=== PATIENT | male | born 1955 | race Caucasian/White ===

== ENCOUNTER 2020-05-01 11:44 | Outpatient (CLI) | payer OTHER, SELFPAY ==
--- NOTE | ~2020-05-01 | XR_ITS ---
XR thoracic spine 3V DATE: 05/01/2020 12:09 INDICATION: T12 area pain TECHNIQUE: AP, lateral, swimmer's views COMPARISON: None FINDINGS: No fracture or dislocation or bone destruction. The thoracic pedicles are intact. There is mild degenerative spurring. No paraspinal soft tissue thickening. IMPRESSION: Mild degenerative change Reviewed, dictated and finalized at location B. TAL SPECIALIST IMPRESSION: Mild degenerative change
== END 2020-05-01 11:45 | disposition home or self-care (01) ==
PROVIDERS: PCP Internal Medicine; Visit Provider Internal Medicine
DX: M19.90 Unspecified osteoarthritis, unspecified site (principal)
CPT/HCPCS: 72072

== ENCOUNTER 2020-08-21 11:32 | Outpatient (CLI) | payer OTHER, SELFPAY | END 2020-08-21 11:33 | disposition home or self-care (01) | LOC: ANHCOVIDVC 11:32 | PROVIDERS: PCP Internal Medicine; Visit Provider Internal Medicine | DX: Z23 Encounter for immunization (principal) | CPT/HCPCS: 0001A; 91300 ==

== ENCOUNTER 2020-09-11 11:35 | Outpatient (CLI) | payer OTHER, SELFPAY | END 2020-09-11 11:36 | disposition home or self-care (01) | LOC: ANHCOVIDVC 11:35 | PROVIDERS: PCP Internal Medicine; Visit Provider Internal Medicine | DX: Z23 Encounter for immunization (principal) | CPT/HCPCS: 0002A; 91300 ==

== ENCOUNTER 2021-01-16 15:46 | Emergency (ER) | payer OTHER, SELFPAY ==
--- NOTE | ~2021-01-16 | CT_ITS ---
[facility] DATE: 01/16/2021 17:02 INDICATION: Left chest and abdominal pain. Fall from height. TECHNIQUE: Computed tomography (CT) of the chest, abdomen, pelvis, thoracic spine, and lumbar spine w as performed with 100 mL Omnipaque 350 intravenous contrast. Automated exposure control and iterative reconstruction technique were employed. The dose-length product was 1147.37 mGy-cm. COMPARISON: Thoracic spine radiographs 05/01/2020 FINDINGS: CHEST CT: There is mild atelectasis in the inferior lungs. A calcified left lung nodule is consistent with old granulomatous disease. No pleural effusion. Cardiomegaly is noted. There are coronary artery calcific ations. No pericardial effusion. There is bilateral gynecomastia. The central pulmonary arteries are enlarged, consistent with pulmonary arterial hypertension. There are fractures of left 10th and 12th ribs. ABDOMEN/PELVIS CT: There is a 7 mm cyst in the liver. The gallbladder is normal. There is a 6 mm low-attenuation lesion in the spleen, likely benign. The pancreas, adrenal glands, and right kidney are normal. There is a 5 mm cyst in left kidney. The prostate is mildly enlarged. There are likely changes of left inguinal h ernia repair. There are no dilated loops of bowel. The appendix is not visualized. There are no patho logically enlarged lymph nodes. There is no free intraperitoneal fluid. THORACIC SPINE CT: There is 4 degrees dextrocurvature of thoracic spine. There is mild chronic anterior wedging of T7-T1 2 vertebral bodies. There is mildly decreased disc height from T4-T5 through T11-T12. There is multil evel facet joint osteoarthritis, severe at many levels. There is multilevel mild neural foraminal abdirashid nosis bilaterally. On the right, there is moderate neural foraminal stenosis at T8-T9. On the left, t here is moderate neural foraminal stenosis at T8-T9. No central canal stenosis. LUMBAR SPINE CT: There is 7 degrees levocurvature of lumbar spine. There is 3 mm retrolisthesis of L2 on L3. Vertebral body heights are normal. There is mildly decreased disc height at L1-L2 and L2-L3, moderately decrea sed disc height at L3-L4, and mildly decreased disc height at L4-L5. The following disc levels are sp ecifically discussed: L1-L2: The disc does not extend beyond the endplate margin. There is mild bilateral facet joint osteo arthritis. There is no neural foraminal stenosis. There is no central canal stenosis. L2-L3: The disc is bulging. There is moderate bilateral facet joint osteoarthritis. There is mild gerda ateral neural foraminal stenosis. There is mild central canal stenosis. L3-L4: The disc is bulging. There is mild right and moderate left facet joint osteoarthritis. There i s moderate bilateral neural foraminal stenosis. There is mild central canal stenosis. L4-L5: The disc is bulging. There is severe right and moderate left facet joint osteoarthritis. There is mild bilateral neural foraminal stenosis. There is mild central canal stenosis. L5-S1: The disc is bulging. There is severe bilateral facet joint osteoarthritis. There is mild bilat eral neural foraminal stenosis. There is mild central canal stenosis. IMPRESSION: 1. Acute fractures of left 10th and 12th ribs. 2. Moderate thoracic and lumbar spondylosis. Reviewed, dictated and finalized at location A.
--- NOTE | ~2021-01-16 | CT_ITS ---
EXAMINATION: CT cervical spine wo con DATE: 01/16/2021 17:01 INDICATION: Neck injury. TECHNIQUE: Computed tomography (CT) of the cervical spine was performed without intravenous contrast. Automated exposure control and iterative reconstruction technique were employed. The dose-length pro duct was 429.82 mGy-cm. COMPARISON: None FINDINGS: Bone alignment is normal. Vertebral body heights are normal. There is mildly decreased disc height at C5-C6. The following disc levels are specifically discussed: C2-C3: There is no uncovertebral joint osteoarthritis. There is no facet joint osteoarthritis. There is no neural foraminal stenosis. There is no central canal stenosis. C3-C4: There is mild right uncovertebral joint osteoarthritis. There is mild bilateral facet joint os teoarthritis. There is no neural foraminal stenosis. There is no central canal stenosis. C4-C5: There is mild right uncovertebral joint osteoarthritis. There is mild bilateral facet joint os teoarthritis. There is no neural foraminal stenosis. There is no central canal stenosis. C5-C6: There is moderate right and mild left uncovertebral joint osteoarthritis. There is mild bilate ral facet joint osteoarthritis. There is mild bilateral neural foraminal stenosis. There is mild cent ral canal stenosis. C6-C7: There is no uncovertebral joint osteoarthritis. There is mild bilateral facet joint osteoarthr itis. There is no neural foraminal stenosis. There is no central canal stenosis. C7-T1: There is no uncovertebral joint osteoarthritis. There is moderate right and severe left facet joint osteoarthritis. There is mild bilateral neural foraminal stenosis. There is no central canal st enosis. IMPRESSION: 1. No fracture. 2. Mild cervical spondylosis. Reviewed, dictated and finalized at location A.
--- NOTE | ~2021-01-16 | CT_ITS ---
EXAMINATION: CT brain wo con DATE: 01/16/2021 17:01 INDICATION: Head injury. TECHNIQUE: Computed tomography (CT) of the head was performed without intravenous contrast. The mA wa s adjusted according to patient size. Iterative reconstruction technique was employed. The dose-lengt h product was 681.00 mGy-cm. COMPARISON: Head CT 05/07/2019, brain MRI 05/08/2019 FINDINGS: There is no intracranial hemorrhage, acute infarction, or abnormal intracranial mass lesion . The ventricles are normal in size. There is a mucous retention cyst in left maxillary sinus. The ma stoid air cells are normal. The orbits are normal. IMPRESSION: 1. Normal brain. Reviewed, dictated and finalized at location A. IMPRESSION: 1. Normal brain.
[2021-01-16 16:11] VITALS: BP 141/81; PULSE 66; RESP 18; TEMP 37.1; O2SAT 99
--- NOTE | 2021-01-16 16:11 | ED.FALL ---
HPI - Fall General Chief Complaint: Fall Stated Complaint: Fell off extension ladder~13 ft Time Seen by Provider: 01/16/21 16:00 Source: patient Mode of arrival: ambulatory Limitations: no limitations History of Present Illness HPI Narrative: This is a 65 year old male that presents to the ER after a fall today. Reports he was on top of an extension ladder. He thinks he was about 12 feet high. Reports the branch his extension ladder was leaning on moved causing his ladder to fall forward. He fell with the ladder and landed on his chest. Reports since he has had neck and mid back pain. Also reports left sided chest pain. Denies hitting his head or loss of consciousness. He has been able to walk since the incident. Also reports a superficial laceration to the left fourth finger. He is not up-to-date on tetanus. Denies vision changes, vomiting, numbness, or weakness. Related Data Home Medications Medication Instructions Recorded Confirmed aspirin 81 mg PO DAILY 05/07/19 05/19/19 nitroglycerin 0.4 mg SUBLINGUAL PRN PRN 05/07/19 05/19/19 Allergies Allergy/AdvReac Type Severity Reaction Status Date / Time No Known Allergies Allergy Verified 05/19/19 09:16 Review of Systems Review of Systems: CONSTITUTIONAL: Denies fever EYES: Denies visual changes CARDIOVASCULAR: Reports chest pain RESPIRATORY: Denies dyspnea. GASTROINTESTINAL: Denies abdominal pain, nausea, vomiting MUSCULOSKELETAL: Reports back pain, joint pain, and myalgia. NEUROLOGIC: Denies headache, numbness, or weakness. 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 His Misti is a durable power construction site manager for healthcare. The patient is a full code. He is retired from [email or web address]. Smoking status: Never smoker Alcohol intake: current Drinks per week: 14 Substance use: never Substance use type: does not use Gender identity (if verbalized by the patient): Male Spiritual care concerns: Yes (would like to see antonia) Agree to blood products: Yes Exam Narrative: GENERAL: Well-appearing, well-nourished, and in no acute distress. HEAD: Normocephalic, atraumatic. EYES: PERRLA and EOMI. ENT: Nares clear, no rhinorrhea or epistaxis. Mucous membranes moist. Oropharynx without tonsillar hypertrophy exudate or other lesions. Bilateral TMs pearly santos non-bulging NECK: Supple. No adenopathy or masses. Tender to palpation of midline lower cervical spine. Cervical collar in place CHEST: Clear to auscultation. No respiratory distress. No wheezes rales or rhonchi HEART: Regular rate and rhythm. No murmur heard. Normal peripheral pulses. ABDOMEN: Soft, nontender, nondistended, normal active bowel sounds. BACK: Tender to palpation of midline thoracic spine. Nontender to palpation of midline lumbar spine EXTREMITIES: Normal range of motion. No edema. Strength equal in bilateral up
[2021-01-16 16:25] LABS: Basophils Percent Auto 0.3 % (0.2-1.2); Eosinophils Absolute Auto 0.1 K/mm3 (0-0.3); Hematocrit 42.5 % (42.0-52.0); Hemoglobin 14.3 g/dL (14.0-18.0); Immature Granulocyte Absolute 0.05 K/mm3 (0.00-0.031); Immature Granulocyte Percent A 0.4 % (0-0.5); Lymphocytes Absolute Auto 0.79 K/mm3 (0.9-3.2); Mean Corpuscular HGB Conc 33.6 g/dl (32-36); Mean Corpuscular Hemoglobin 32.6 pg (26-34); Monocytes Percent Auto 8.8 % (2.6-8.5); Neutrophils Absolute Auto 9.4 K/mm3 (1.3-6.7); Neutrophils Percent Auto 82.5 % (45.5-73.1); Platelet Count Result 149 k/mm3 (150-375); Red Blood Count 4.38 M/mm3 (4.6-6.20); Red Cell Distribution Width 12.5 % (11.5-14.5); White Blood Count 11.4 K/mm3 (4.5-10.0)
[2021-01-16 16:36] LABS: Alanine Aminotransferase 27 U/L (4-50); Alkaline Phosphatase 72 U/L (38-126); Anion Gap 6 mmol/L (8-16); Aspartate Amino Transferase 42 U/L (17-59); Bilirubin,Total 0.5 mg/dL (0.2-1.3); Blood Urea Nitrogen 18 mg/dL (9-20); Carbon Dioxide 28 mmol/L (22-30); Chloride 102 mmol/L (98-107); Estimated CRCL calculation 88 ml/min; Estimated Glomerular Filt Rate > 60; Glucose 149 mg/dL (65-110); INR 0.9; Lipase 128 U/L (23-300); Potassium 4.1 mmol/L (3.4-5.0); Prothrombin Time 12.3 Seconds (11.1-14.7); Sodium 136 mmol/L (137-145)
[2021-01-16 16:38] LABS: Estimated CRCL calculation 79 ml/min; Estimated Glomerular Filt Rate > 60
[2021-01-16 17:00] VITALS: BP 130/79; PULSE 65; RESP 18; O2SAT 100
[2021-01-16] MEDS: TETANUS,DIPHTHERIA,AC PERTUSSIS ADULT (0.5 ML) BOOSTRIX IM (18:30)
== END 2021-01-16 18:46 | disposition home or self-care (01) ==
PROVIDERS: Physician Assistant; Emergency Provider Emergency Medicine; PCP Internal Medicine
DX: S22.42XA Multiple fractures of ribs, left side, initial encounter for closed fracture (principal); M54.2 Cervicalgia; Z23 Encounter for immunization; F41.9 Anxiety disorder, unspecified; M19.90 Unspecified osteoarthritis, unspecified site; I10 Essential (primary) hypertension; E78.5 Hyperlipidemia, unspecified; W11.XXXA Fall on and from ladder, initial encounter
CPT/HCPCS: 36415; 70450; 71260; 72125; 72129; 72132; 74177; 80053; 83690; 85025; 85610; 85730; 90471; 90715; 99284; Q9967

== ENCOUNTER 2022-12-10 14:12 | Outpatient (CLI) | payer MEDICARE, OTHER, SELFPAY ==
--- NOTE | ~2022-12-10 | CT_ITS ---
CT of the Abdomen and Pelvis: Indication: Hematuria Technique: 2.5 mm axial scans were obtained through the abdomen and pelvis prior to and following in travenous administration of 130 cc of Omnipaque 350. Dose reduction technique was used on this scan b y utilizing automated exposure control and iterative reconstruction technique. The dose-length produc t (DLP) was 1376.50 mGy-cm. COMPARISON: 01/16/2021 Findings: Scans through the lung bases are unremarkable. The liver, spleen, pancreas, gallbladder, adrenals and left kidney are within normal limits. There is mild to moderate right hydronephrosis and dilatation the right renal pelvis. There is mild hyperdens ity of the right renal collecting system on precontrast images, suggestive of hematuria. Postcontrast images demonstrate patchy decreased right renal parenchymal enhancement, consistent with pyelonephri tis. No evidence of aortic aneurysm. No lymphadenopathy. No bowel obstruction or bowel wall thickening. There is no evidence to suggest acute appendicitis. Images through the pelvis were performed. Urinary bladder unremarkable. Prostate gland is significant ly enlarged. Impression: Right pyelonephritis. Moderate right hydronephrosis and dilatation right renal pelvis. Dilated right renal collecting syste m is mildly hyperdense on precontrast images, suggestive of hematuria/blood products in the collectin g system. Relative increased attenuation on postcontrast images is likely due to excretion of contras t into the collecting system. Soft tissue/tumor within the right renal collecting system is difficult to completely exclude. Pre and postcontrast MR could be considered if there is clinical concern for neoplastic disease in the right renal collecting system. Enlarged prostate gland. Reviewed, dictated and finalized at location M. Impression: Right pyelonephritis. Moderate right hydronephrosis and dilatation right renal pelvis. Dilated right renal collecting system is mildly hyperdense on precontrast images, suggestive of hematuria/blood products in the collecting system. Relative increased attenu ation on postcontrast images is likely due to excretion of contrast into the co llecting system. Soft tissue/tumor within the right renal collecting system is difficult to completely exclude. Pre and postcontrast MR could be considered if there is clinical concern for neoplastic disease in the right renal collecting system. Enlarged prostate gland.
[2022-12-10 14:38] LABS: Estimated Glomerular Filt Rate > 60
== END 2022-12-10 14:13 | disposition home or self-care (01) ==
PROVIDERS: PCP Family Medicine; Visit Provider Nurse Practitioner
DX: R31.9 Hematuria, unspecified (principal); N40.0 Benign prostatic hyperplasia without lower urinary tract symptoms; N13.30 Unspecified hydronephrosis; N28.89 Other specified disorders of kidney and ureter; N12 Tubulo-interstitial nephritis, not specified as acute or chronic
CPT/HCPCS: 74178; Q9967

== ENCOUNTER 2022-12-24 12:31 | Outpatient (CLI) | payer OTHER, SELFPAY ==
--- NOTE | ~2022-12-24 | MR_ITS ---
EXAMINATION: MR renal wo/w con INDICATION: Abnormal CT demonstrating soft tissue in the right renal pelvis TECHNIQUE: Coronal SSFSE ARC, WATER:coronal LAVA-FLEX, Coronal 2D FIESTA FatSat, Axial SSFSE BH ARC, Axial 3D DualEcho BH, Axial SSFSE-IR, Axial DWI b=500, Axial 2D FIESTA FatSat, pre and dynamic postco ntrast Axial LAVA ARC, postcontrast Coronal In and Opposed phase LAVA FLEX COMPARISON: CT, 12/10/2022 CONTRAST: Multihance, 18 cc FINDINGS: The liver, spleen, pancreas, and adrenal glands are normal. The gallbladder is contracted. There is a 7 mm cyst of the left kidney. There is urothelial thickening and enhancement in the right renal pelvis. There are no pathologically enlarged abdominal lymph nodes. No dilated loops of bowel a re evident. A moderate large volume of colonic stool is present. IMPRESSION: 1. Urothelial thickening and enhancement in the right renal pelvis which could reflect urothelial car cinoma, infection, or other malignancy. Urologic evaluation and direct visualization are recommended. Reviewed, dictated and finalized at location L. IMPRESSION: 1. Urothelial thickening and enhancement in the right renal pelvis which could reflect urothelial carcinoma, infection, or other malignancy. Urologic evaluati on and direct visualization are recommended.
== END 2022-12-24 12:32 | disposition home or self-care (01) ==
PROVIDERS: PCP Family Medicine; Visit Provider Nurse Practitioner
DX: R93.429 Abnormal radiologic findings on diagnostic imaging of unspecified kidney (principal)
CPT/HCPCS: 74183; A9577

== ENCOUNTER 2025-03-09 13:52 | Outpatient (CLI) | payer MEDICARE, SELFPAY ==
--- NOTE | ~2025-03-09 | XR_ITS ---
Examination: XR wrist RT 2V Clinical History: RT WRIST PAIN x6 MONTHS Comparison: None Technique: 2 views right wrist Findings/impression: 1. No fracture or dislocation right wrist, given 2 view series. 2. Question slight irregularity base of fifth metacarpal. Recommend correlation with point tenderness, and hand x-rays if indicated. Reviewed, dictated and finalized at location R.
== END 2025-03-09 13:53 | disposition home or self-care (01) ==
LOC: MICIMG 13:54
PROVIDERS: PCP Family Medicine; Visit Provider Family Medicine
DX: M25.531 Pain in right wrist (principal)
CPT/HCPCS: 73100